=== PATIENT | female | born 1985 | race Caucasian/White ===

== ENCOUNTER 2024-09-22 15:51 | Emergency (ER) | payer OTHER ==
[~2024-09-22] VITALS: Ht 165.1 cm; Wt 73.6 kg
[2024-09-22 15:54] VITALS: BP 142/71; PULSE 85; RESP 18; TEMP 98.2; O2SAT 100
== END 2024-09-22 17:01 | disposition home or self-care (01) ==
LOC: EMS 15:56
DX: S90.32XA Contusion of left foot, initial encounter (principal); X58.XXXA Exposure to other specified factors, initial encounter; Y93.89 Activity, other specified; Y92.89 Other specified places as the place of occurrence of the external cause; Y99.8 Other external cause status
CPT/HCPCS: 99283